=== PATIENT | female | born 1945 | race Caucasian/White ===

== ENCOUNTER 2018-05-22 21:13 | Observation (INO) ==
[2018-05-22] MEDS ORDERED: HYDROmorphone 2 MG/1 ML VIAL IV PRN (23:26)
[2018-05-22] MEDS ORDERED: SODIUM CHLORIDE 0.9% 1,000 ML IV STA (23:26)
[2018-05-22] MEDS ORDERED: KETOROLAC 30 MG/1 ML VIAL IV STA (23:26)
[2018-05-22] MEDS ORDERED: ONDANSETRON 4 MG/2 ML VIAL IV STA (23:26)
[2018-05-22] MEDS ORDERED: ONDANSETRON 4 MG/2 ML VIAL IV PRN (23:27)
[2018-05-23] MEDS: HYDROmorphone 2 MG/1 ML VIAL IV PRN ×2 (00:36→09:45)
[2018-05-23 00:41] LABS: Basophils # 0.1 10*3/uL (0.0-0.2); Basophils % 0.3 % (0.0-0.8); Eosinophils # 0.2 10*3/uL (0.0-0.87); Eosinophils % 0.7 % (0.00-10.9); Hematocrit 39.4 VOL% (35.7-47.0); Hemoglobin 13.7 GM/DL (12.0-16.0); Immature Granulocytes % 0.7 %; Immature Granulocytes Absolute 0.14 #; Lymphocytes # 0.8 10*3/uL (1.4-4.0); Lymphocytes % 3.8 % (21.3-54.2); Mean Corpuscular HGB Conc 34.8 GM/DL (32-36); Mean Corpuscular Hemoglobin 31 PG (27-34); Mean Platelet Volume 10.2 FL (9.6-12.0); Monocytes # 1.6 10*3/uL (0.11-0.8); Monocytes % 7.7 % (1.7-12.7); Neutrophils # 17.8 10*3/uL (1.4-7.4); Neutrophils % 86.8 % (38.7-73.9); Platelet Count 296 T/CUMM (130-400); Red Blood Count 4.38 MC/CUMM (3.8-5.5); Red Cell Distribution Width 12.3 % (9.3-17.3); White Blood Count 20.5 T/CUMM (4-12)
[2018-05-23 00:53] LABS: Albumin 3.6 G/DL (3.4-5.0); Bilirubin,Total 0.9 MG/DL (0.2-1.0); Calcium 9.1 MG/DL (8.5-10.1); Osmolality,Calculated 272.2 MOS/KG (273-304); Potassium 4.2 MMOL/L (3.5-5.1); Total Protein 7.6 G/DL (6.4-8.3)
[2018-05-23 00:56] LABS: Apearance,Urine CLOUDY (Clear); Bilirubin,Urine Negative (Negative); Blood, Urine Large mg/dL (Negative); Calcium Oxalate Crystals,Urine Moderate /HPF (Few); Glucose,Urine (UA) Negative (Negative); Ketones,Urine Negative (Negative); Nitrite,Urine Negative (Negative); Protein,Urine 100 MG/DL; RBC,Urine 657 /HPF (0-4); Squamous Epithelial Cell,Urine Occasional /HPF (0-10); Urine Color Yellow (Yellow); Urine Specific Gravity 1.014 (1.001-1.035); Urine Urobilinogen < 2.0 EU/DL (0.2-1.0); WBC,Urine 71 /HPF (0-6)
[2018-05-23 01:16] LABS: Band Neutrophils 4 % (0-10); Lymphocytes 8 % (20-55); Platelet Estimate Normal; Segmented Neutrophils 83 % (50-85); Total Cells Counted 100
[2018-05-23] MEDS: DEXTROSE 5% LACTATED RINGERS 1,000 ML IV SCH ×2 (02:03→10:29)
[2018-05-23] MEDS ORDERED: CARVEDILOL 6.25 MG TABLET PO SCH (09:00)
[2018-05-23] MEDS ORDERED: IRBESARTAN 150 MG TABLET PO SCH (09:00)
[2018-05-23] MEDS ORDERED: PANTOPRAZOLE 40 MG TABLET PO SCH (09:00)
[2018-05-23] MEDS ORDERED: MAGNESIUM CHLORIDE 64 MG TABLET PO SCH (09:00)
[2018-05-23] MEDS ORDERED: HYDROmorphone 2 MG/1 ML VIAL IV PRN (12:08)
[2018-05-23] MEDS ORDERED: SEVOFLURANE 1 UNIT/15 MINUTE INH ONE (15:53)
[2018-05-23] MEDS ORDERED: PROPOFOL 200 MG/20 ML VIAL IV ONE (15:53)
[2018-05-23] MEDS ORDERED: ONDANSETRON 4 MG/2 ML VIAL ONE (15:53)
[2018-05-23] MEDS ORDERED: fentaNYL 100 MCG/2 ML VIAL ONE (15:53)
[2018-05-23] MEDS ORDERED: ONDANSETRON ODT 4 MG TABLET PO PRN (16:06)
[2018-05-23] MEDS ORDERED: oxyCODONE/ACETAMINOPHEN 5-325 MG TABLET PO PRN (16:06)
[2018-05-23 19:06] VITALS: BP 139/69
[2018-05-23] MEDS ORDERED: AMOXICILLIN/CLAV 875 MG TABLET PO SCH (21:00)
[2018-05-23] MEDS ORDERED: ATORVASTATIN 80 MG TABLET PO SCH (21:00)
[2018-05-23] MEDS ORDERED: ESCITALOPRAM 10 MG TABLET PO SCH (21:00)
== END 2018-05-23 19:30 | disposition home or self-care (01) ==
LOC: N.ED 21:13 → N.EDINP 21:13 → N.5E 05-23 00:13
PROVIDERS: ADMIT Urology; ATTEND Urology

== ENCOUNTER 2020-05-14 19:00 | Inpatient (IN) ==
[2020-05-14] MEDS ORDERED: ASPIRIN 325 MG TABLET PO STA (19:30)
[2020-05-14] MEDS ORDERED: MORPHINE 4 MG/1 ML VIAL IV STA (19:30)
[2020-05-14] MEDS ORDERED: ONDANSETRON 4 MG/2 ML VIAL IV STA (19:30)
[2020-05-14] MEDS ORDERED: ALUM/MAG/SIMETH/LIDO VISC 1:1 30 ML BOTTLE PO STA (19:30)
[2020-05-14] MEDS ORDERED: METOPROLOL TARTRATE 5 MG/5 ML VIAL IV STA ×2 (19:30→20:12)
[2020-05-14] MEDS ORDERED: NITROGLYCERIN 2% OINT 1 INCH/GM PACK TOP STA (19:30)
[2020-05-14] MEDS ORDERED: ENOXAPARIN 100 MG/ML SYRINGE SUBCUT STA (19:30)
[2020-05-14 19:42] LABS: Basophils % 0.4 % (0.0-0.8); Eosinophils % 0.1 % (0.00-10.9); Hematocrit 40.7 VOL% (35.7-47.0); Hemoglobin 13.3 GM/DL (12.0-16.0); Immature Granulocytes % 1.2 %; Immature Granulocytes Absolute 0.11 #; Lymphocytes # 0.8 10*3/uL (1.4-4.0); Lymphocytes % 8.3 % (21.3-54.2); Mean Corpuscular HGB Conc 32.7 GM/DL (32-36); Mean Corpuscular Volume 95.3 FL (87-102); Mean Platelet Volume 9.9 FL (9.6-12.0); Monocytes % 2.1 % (1.7-12.7); Neutrophils % 87.9 % (38.7-73.9); Platelet Count 338 T/CUMM (130-400); Red Blood Count 4.27 MC/CUMM (3.8-5.5); Red Cell Distribution Width 13.8 % (9.3-17.3); White Blood Count 9.4 T/CUMM (4-12)
[2020-05-14 19:58] LABS: PT Patient Result 10.8 SECS (9.8-11.9)
[2020-05-14 20:03] LABS: Albumin 3.8 G/DL (3.4-5.0); Bilirubin,Total 0.7 MG/DL (0.2-1.0); Calcium 9.6 MG/DL (8.5-10.1); Osmolality,Calculated 286.8 MOS/KG (273-304); Total Protein 7.8 G/DL (6.4-8.3)
[2020-05-14] MEDS ORDERED: MAGNESIUM SULF RIDER 2 GM in PREMIX 1 EACH IV STA (20:11)
[2020-05-14] MEDS ORDERED: ACETAMINOPHEN 325 MG TABLET PO PRN (20:30)
[2020-05-14] MEDS ORDERED: MORPHINE 4 MG/1 ML VIAL IV PRN (20:30)
[2020-05-14] MEDS ORDERED: ONDANSETRON 4 MG/2 ML VIAL IV PRN (20:30)
[2020-05-14] MEDS ORDERED: DEXTROSE 50% 25 GM/50 ML VIAL IV PRN (20:33)
[2020-05-14] MEDS ORDERED: GLUCAGON 1 MG VIAL IM PRN (20:33)
[2020-05-14] MEDS: INSULIN REGULAR 100 UNIT/ML SUBCUT SCH (22:27)
[2020-05-14] MEDS ORDERED: carvediloL 6.25 MG TABLET PO SCH (23:00)
[2020-05-14] MEDS: LOSARTAN 50 MG TABLET PO SCH (23:14)
[2020-05-14] MEDS ORDERED: hydrALAZINE 20 MG/1 ML VIAL IV PRN (23:25)
[2020-05-15] MEDS: NITROGLYCERIN 2% OINT 1 INCH/GM PACK TOP SCH ×4 (01:21→18:09)
[2020-05-15 06:07] LABS: Basophils # 0.1 10*3/uL (0.0-0.2); Basophils % 0.5 % (0.0-0.8); Eosinophils # 0.1 10*3/uL (0.0-0.87); Eosinophils % 0.9 % (0.00-10.9); Hematocrit 35.7 VOL% (35.7-47.0); Hemoglobin 11.7 GM/DL (12.0-16.0); Immature Granulocytes % 0.7 %; Immature Granulocytes Absolute 0.09 #; Lymphocytes # 1.7 10*3/uL (1.4-4.0); Lymphocytes % 14.2 % (21.3-54.2); Mean Corpuscular HGB Conc 32.8 GM/DL (32-36); Mean Corpuscular Volume 96.2 FL (87-102); Mean Platelet Volume 9.6 FL (9.6-12.0); Monocytes % 9.1 % (1.7-12.7); Neutrophils % 74.6 % (38.7-73.9); Platelet Count 274 T/CUMM (130-400); Red Blood Count 3.71 MC/CUMM (3.8-5.5); Red Cell Distribution Width 13.8 % (9.3-17.3); White Blood Count 12.3 T/CUMM (4-12)
[2020-05-15 06:32] LABS: Albumin 3.4 G/DL (3.4-5.0); Bilirubin,Total 1.1 MG/DL (0.2-1.0); Calcium 9.2 MG/DL (8.5-10.1); Osmolality,Calculated 281.5 MOS/KG (273-304); Total Protein 6.9 G/DL (6.4-8.3)
[2020-05-15 07:03] LABS: Risk Ratio 1.93; VLDL CHOLESTEROL 18.8 MG/DL
[2020-05-15] MEDS ORDERED: ENOXAPARIN 100 MG/ML SYRINGE SUBCUT SCH (08:00)
[2020-05-15] MEDS ORDERED: diphenhydrAMINE CAP 25 MG CAPSULE PO ONE (08:27)
[2020-05-15] MEDS ORDERED: POTASSIUM CHLORIDE RIDER 10 MEQ in PREMIX 1 EACH IV PRN (08:27)
[2020-05-15] MEDS ORDERED: MAGNESIUM SULF RIDER 2 GM in PREMIX 1 EACH IV PRN (08:27)
[2020-05-15] MEDS ORDERED: DIAZEPAM 5 MG TABLET PO ONE (08:27)
[2020-05-15] MEDS ORDERED: SODIUM CHLORIDE 0.45% 1,000 ML IV SCH (08:30)
[2020-05-15] MEDS: INSULIN REGULAR 100 UNIT/ML SUBCUT SCH ×4 (08:30→21:54)
[2020-05-15] MEDS ORDERED: MAGNESIUM SULF RIDER 2 GM in PREMIX 1 EACH IV ONE (08:32)
[2020-05-15] MEDS ORDERED: LIDOCAINE 1% 20 ML VIAL ONE (09:22)
[2020-05-15] MEDS ORDERED: HEPARIN/NACL 0.9% 2 UNITS/ML 1,000 ML IV ONE (09:22)
[2020-05-15] MEDS: carvediloL 6.25 MG TABLET PO SCH ×2 (09:30→16:51)
[2020-05-15] MEDS: LOSARTAN 50 MG TABLET PO SCH (09:31)
[2020-05-15] MEDS: ASPIRIN EC 81 MG TABLET PO SCH (09:31)
[2020-05-15] MEDS: PANTOPRAZOLE 40 MG TABLET PO SCH (09:31)
[2020-05-15] MEDS ORDERED: NITROGLYCERIN DRIP 50 MG/250 ML BOTTLE IV ONE (10:08)
[2020-05-15] MEDS ORDERED: VERAPAMIL 5 MG/2 ML VIAL ONE (10:08)
[2020-05-15] MEDS ORDERED: HYDROmorphone 2 MG/1 ML VIAL ONE (10:16)
[2020-05-15] MEDS ORDERED: MIDAZOLAM 2 MG/2 ML VIAL ONE (10:16)
[2020-05-15] MEDS ORDERED: ENOXAPARIN 30 MG/0.3 ML SYRINGE ONE (10:37)
[2020-05-15] MEDS ORDERED: EPTIFIBATIDE 20,000 MCG/10 ML VIAL ONE (11:02)
[2020-05-15] MEDS ORDERED: TICAGRELOR 90 MG TABLET ONE (11:36)
[2020-05-15] MEDS ORDERED: SODIUM CHLORIDE 0.9% 1,000 ML IV SCH (12:00)
[2020-05-15] MEDS ORDERED: ENOXAPARIN 40 MG/0.4 ML SYRINGE SUBCUT SCH ×2 (15:00→21:00)
[2020-05-15 19:09] LABS: Hematocrit 36.1 VOL% (35.7-47.0); Hemoglobin 11.9 GM/DL (12.0-16.0)
[2020-05-15] MEDS ORDERED: ROSUVASTATIN 20 MG TABLET PO SCH (21:00)
[2020-05-15] MEDS ORDERED: ESCITALOPRAM 10 MG TABLET PO SCH (21:00)
[2020-05-15] MEDS: TICAGRELOR 90 MG TABLET PO SCH (21:43)
[2020-05-16] MEDS: NITROGLYCERIN 2% OINT 1 INCH/GM PACK TOP SCH ×2 (00:02→05:37)
[2020-05-16 05:54] LABS: Basophils # 0.1 10*3/uL (0.0-0.2); Basophils % 0.5 % (0.0-0.8); Eosinophils # 0.4 10*3/uL (0.0-0.87); Eosinophils % 3.6 % (0.00-10.9); Hematocrit 34.6 VOL% (35.7-47.0); Hemoglobin 11.5 GM/DL (12.0-16.0); Immature Granulocytes % 0.8 %; Immature Granulocytes Absolute 0.09 #; Lymphocytes # 1.4 10*3/uL (1.4-4.0); Lymphocytes % 12.7 % (21.3-54.2); Mean Corpuscular HGB Conc 33.2 GM/DL (32-36); Mean Corpuscular Volume 96.4 FL (87-102); Monocytes % 9.3 % (1.7-12.7); Neutrophils % 73.1 % (38.7-73.9); Platelet Count 241 T/CUMM (130-400); Red Blood Count 3.59 MC/CUMM (3.8-5.5); Red Cell Distribution Width 14.1 % (9.3-17.3); White Blood Count 11.1 T/CUMM (4-12)
[2020-05-16 06:25] LABS: Calcium 8.8 MG/DL (8.5-10.1); Osmolality,Calculated 279.5 MOS/KG (273-304)
[2020-05-16 06:29] LABS: CKMB % 4.3 %
[2020-05-16 07:05] LABS: Troponin I 7.05 NG/ML (0.00-0.045)
[2020-05-16] MEDS: INSULIN REGULAR 100 UNIT/ML SUBCUT SCH ×2 (08:16→13:16)
[2020-05-16] MEDS: LOSARTAN 50 MG TABLET PO SCH (08:38)
[2020-05-16] MEDS: PANTOPRAZOLE 40 MG TABLET PO SCH (08:38)
[2020-05-16] MEDS: ASPIRIN EC 81 MG TABLET PO SCH (08:38)
[2020-05-16] MEDS: carvediloL 6.25 MG TABLET PO SCH (08:38)
[2020-05-16] MEDS: TICAGRELOR 90 MG TABLET PO SCH (08:39)
[2020-05-16] MEDS ORDERED: MAGNESIUM CHLORIDE 64 MG TABLET PO SCH (09:00)
[2020-05-16] MEDS ORDERED: CLOPIDOGREL 75 MG TABLET PO SCH (10:30)
[2020-05-16 12:35] VITALS: BP 160/71
[2020-05-16] MEDS ORDERED: ATORVASTATIN 40 MG TABLET PO SCH (21:00)
[2020-05-16] MEDS ORDERED: ATORVASTATIN 80 MG TABLET PO SCH (21:00)
[2020-05-16] MEDS ORDERED: PANTOPRAZOLE 40 MG TABLET PO SCH (21:00)
== END 2020-05-16 14:04 | disposition home or self-care (01) | DRG 247 ==
LOC: N.EDINP 19:00 → N.ED 19:00 → N.TELEN 21:42
PROVIDERS: ADMIT Internal Medicine; ATTEND Internal Medicine

== ENCOUNTER 2021-01-05 13:28 | Inpatient (IN) ==
[2021-01-05 14:03] LABS: Basophils # 0.1 10*3/uL (0.0-0.2); Basophils % 0.8 % (0.0-0.8); Eosinophils # 0.4 10*3/uL (0.0-0.87); Eosinophils % 3.2 % (0.00-10.9); Hematocrit 43.3 VOL% (35.7-47.0); Hemoglobin 14.6 GM/DL (12.0-16.0); Immature Granulocytes % 0.5 %; Immature Granulocytes Absolute 0.06 #; Lymphocytes # 1.7 10*3/uL (1.4-4.0); Lymphocytes % 12.4 % (21.3-54.2); Mean Corpuscular HGB Conc 33.7 GM/DL (32-36); Mean Corpuscular Volume 94.3 FL (87-102); Monocytes % 9.3 % (1.7-12.7); Neutrophils % 73.8 % (38.7-73.9); Platelet Count 403 T/CUMM (130-400); Red Blood Count 4.59 MC/CUMM (3.8-5.5); Red Cell Distribution Width 13.8 % (9.3-17.3); White Blood Count 13.3 T/CUMM (4-12)
[2021-01-05] MEDS ORDERED: NITROGLYCERIN SL 0.4 MG TABLET SL STA (14:03)
[2021-01-05 14:18] LABS: Albumin 4.4 G/DL (3.4-5.0); Bilirubin,Total 0.6 MG/DL (0.2-1.0); Calcium 9.9 MG/DL (8.5-10.1); Osmolality,Calculated 280.2 MOS/KG (273-304); PT Patient Result 10.8 SECS (9.8-11.9); Total Protein 8.5 G/DL (6.4-8.2)
[2021-01-05 14:21] LABS: Potassium 6.8 MMOL/L (3.5-5.1)
[2021-01-05 14:22] LABS: Troponin I < 0.015 NG/ML (0.00-0.045)
[2021-01-05] MEDS ORDERED: DEXTROSE 50% 25 GM/50 ML VIAL IV STA (14:35)
[2021-01-05] MEDS ORDERED: INSULIN REGULAR 100 UNIT/ML IV STA (14:35)
[2021-01-05] MEDS ORDERED: SODIUM POLYSTYRENE SULFATE 15 GM/60 ML BOTTLE PO STA (14:53)
[2021-01-05] MEDS ORDERED: CALCIUM GLUCONATE 1,000 MG in SODIUM CHLORIDE 0.9% 100 ML IV ONE ×2 (15:00→17:00)
[2021-01-05] MEDS ORDERED: GLUCAGON 1 MG VIAL IM PRN (15:15)
[2021-01-05] MEDS ORDERED: ACETAMINOPHEN 325 MG TABLET PO PRN (15:15)
[2021-01-05] MEDS ORDERED: DEXTROSE 50% 25 GM/50 ML VIAL IV PRN (15:15)
[2021-01-05] MEDS ORDERED: ONDANSETRON 4 MG/2 ML VIAL IV PRN (15:15)
[2021-01-05] MEDS ORDERED: NITROGLYCERIN SL 0.4 MG TABLET SL PRN (15:17)
[2021-01-05] MEDS ORDERED: carvediloL 12.5 MG TABLET PO SCH (15:30)
[2021-01-05 15:43] LABS: Risk Ratio 2.41; Thyroid Stimulating Hormone 2.19 uIU/ml (0.358-3.74); VLDL CHOLESTEROL 43.2 MG/DL
[2021-01-05] MEDS: INSULIN REGULAR 100 UNIT/ML SUBCUT SCH ×2 (16:23→21:44)
[2021-01-05] MEDS: SODIUM BICARB INJ 50 MEQ in SODIUM CHLORIDE 0.45% 1,000 ML IV SCH (16:52)
[2021-01-05 19:05] LABS: Troponin I < 0.015 NG/ML (0.00-0.045)
[2021-01-05 21:01] LABS: Troponin I < 0.015 NG/ML (0.00-0.045)
[2021-01-05] MEDS: ESCITALOPRAM 10 MG TABLET PO SCH (21:34)
[2021-01-05] MEDS: ATORVASTATIN 80 MG TABLET PO SCH (21:34)
[2021-01-06 01:05] LABS: Basophils # 0.1 10*3/uL (0.0-0.2); Basophils % 0.8 % (0.0-0.8); Eosinophils # 0.5 10*3/uL (0.0-0.87); Eosinophils % 4.4 % (0.00-10.9); Hematocrit 41.2 VOL% (35.7-47.0); Hemoglobin 13.5 GM/DL (12.0-16.0); Immature Granulocytes % 0.6 %; Immature Granulocytes Absolute 0.07 #; Lymphocytes # 1.9 10*3/uL (1.4-4.0); Lymphocytes % 16.6 % (21.3-54.2); Mean Corpuscular HGB Conc 32.8 GM/DL (32-36); Mean Corpuscular Volume 95.4 FL (87-102); Mean Platelet Volume 9.9 FL (9.6-12.0); Monocytes % 10.4 % (1.7-12.7); Neutrophils % 67.2 % (38.7-73.9); Platelet Count 336 T/CUMM (130-400); Red Blood Count 4.32 MC/CUMM (3.8-5.5); Red Cell Distribution Width 13.8 % (9.3-17.3); White Blood Count 11.5 T/CUMM (4-12)
[2021-01-06 01:19] LABS: Calcium 9.2 MG/DL (8.5-10.1); Osmolality,Calculated 284.9 MOS/KG (273-304); Potassium 5.5 MMOL/L (3.5-5.1)
[2021-01-06] MEDS: SODIUM BICARB INJ 50 MEQ in SODIUM CHLORIDE 0.45% 1,000 ML IV SCH ×3 (03:34→22:32)
[2021-01-06 07:31] LABS: Bacteria,Urine Occasional /HPF (Few); Bilirubin,Urine Negative (Negative); Blood, Urine Negative (Negative); Glucose,Urine (UA) Negative (Negative); Hyaline Casts,Urine 1 /LPF (0-3); Ketones,Urine Negative (Negative); Mucus,Urine Occasional /LPF (Occasional); Nitrite,Urine Negative (Negative); Protein,Urine Negative; RBC,Urine 2 /HPF (0-4); Squamous Epithelial Cell,Urine Occasional /HPF (0-10); Urine Appearance CLEAR (Clear); Urine Color Straw (Yellow); Urine Specific Gravity 1.009 (1.001-1.035); Urine Urobilinogen < 2.0 EU/DL (0.2-1.0); WBC,Urine 2 /HPF (0-6)
[2021-01-06] MEDS: INSULIN REGULAR 100 UNIT/ML SUBCUT SCH ×4 (08:07→20:32)
[2021-01-06] MEDS: ASPIRIN EC 81 MG TABLET PO SCH (08:28)
[2021-01-06] MEDS: MAGNESIUM CHLORIDE 64 MG TABLET PO SCH (08:29)
[2021-01-06] MEDS: PANTOPRAZOLE 40 MG TABLET PO SCH (08:29)
[2021-01-06] MEDS: CLOPIDOGREL 75 MG TABLET PO SCH (08:29)
[2021-01-06] MEDS: carvediloL 12.5 MG TABLET PO SCH ×2 (08:29→20:33)
[2021-01-06] MEDS ORDERED: SODIUM POLYSTYRENE SULFATE 15 GM/60 ML BOTTLE PO ONE (11:23)
[2021-01-06] MEDS: SODIUM CHLORIDE 0.9% 1,000 ML IV SCH (11:39)
[2021-01-06 12:17] LABS: Protein/Creatinine Ratio,Urine 0.1 RATIO
[2021-01-06] MEDS: ATORVASTATIN 80 MG TABLET PO SCH (20:33)
[2021-01-06] MEDS: ESCITALOPRAM 10 MG TABLET PO SCH (20:33)
[2021-01-07] MEDS: SODIUM CHLORIDE 0.9% 1,000 ML IV SCH ×2 (00:21→13:10)
[2021-01-07 05:56] LABS: Basophils # 0.1 10*3/uL (0.0-0.2); Basophils % 0.7 % (0.0-0.8); Eosinophils # 0.6 10*3/uL (0.0-0.87); Eosinophils % 6.6 % (0.00-10.9); Hematocrit 35.2 VOL% (35.7-47.0); Hemoglobin 12.1 GM/DL (12.0-16.0); Immature Granulocytes % 0.2 %; Immature Granulocytes Absolute 0.02 #; Lymphocytes # 1.7 10*3/uL (1.4-4.0); Lymphocytes % 17.7 % (21.3-54.2); Mean Corpuscular HGB Conc 34.4 GM/DL (32-36); Mean Corpuscular Volume 93.4 FL (87-102); Mean Platelet Volume 10.1 FL (9.6-12.0); Monocytes % 9.9 % (1.7-12.7); Neutrophils % 64.9 % (38.7-73.9); Platelet Count 264 T/CUMM (130-400); Red Blood Count 3.77 MC/CUMM (3.8-5.5); Red Cell Distribution Width 13.6 % (9.3-17.3); White Blood Count 9.4 T/CUMM (4-12)
[2021-01-07 06:12] LABS: Calcium 8.9 MG/DL (8.5-10.1); Osmolality,Calculated 293.7 MOS/KG (273-304); Potassium 5.7 MMOL/L (3.5-5.1)
[2021-01-07] MEDS ORDERED: SODIUM POLYSTYRENE SULFATE 15 GM/60 ML BOTTLE PO ONE (07:17)
[2021-01-07] MEDS: INSULIN REGULAR 100 UNIT/ML SUBCUT SCH ×4 (07:49→20:38)
[2021-01-07] MEDS: carvediloL 12.5 MG TABLET PO SCH ×2 (08:14→20:38)
[2021-01-07] MEDS: ASPIRIN EC 81 MG TABLET PO SCH (08:14)
[2021-01-07] MEDS: MAGNESIUM CHLORIDE 64 MG TABLET PO SCH (08:14)
[2021-01-07] MEDS: CLOPIDOGREL 75 MG TABLET PO SCH (08:14)
[2021-01-07] MEDS: PANTOPRAZOLE 40 MG TABLET PO SCH (08:14)
[2021-01-07] MEDS: SODIUM BICARB INJ 50 MEQ in SODIUM CHLORIDE 0.45% 1,000 ML IV SCH (09:13)
[2021-01-07] MEDS: ATORVASTATIN 80 MG TABLET PO SCH (20:38)
[2021-01-07] MEDS: ESCITALOPRAM 10 MG TABLET PO SCH (20:38)
[2021-01-08] MEDS: SODIUM CHLORIDE 0.9% 1,000 ML IV SCH (03:29)
[2021-01-08 05:55] LABS: Basophils # 0.1 10*3/uL (0.0-0.2); Basophils % 0.7 % (0.0-0.8); Eosinophils # 0.6 10*3/uL (0.0-0.87); Eosinophils % 6.7 % (0.00-10.9); Hematocrit 32.8 VOL% (35.7-47.0); Hemoglobin 11.1 GM/DL (12.0-16.0); Immature Granulocytes % 0.3 %; Immature Granulocytes Absolute 0.03 #; Lymphocytes # 1.4 10*3/uL (1.4-4.0); Lymphocytes % 15.3 % (21.3-54.2); Mean Corpuscular HGB Conc 33.8 GM/DL (32-36); Mean Corpuscular Volume 93.7 FL (87-102); Mean Platelet Volume 10.2 FL (9.6-12.0); Platelet Count 226 T/CUMM (130-400); Red Cell Distribution Width 13.7 % (9.3-17.3); White Blood Count 9.4 T/CUMM (4-12)
[2021-01-08 06:16] LABS: Calcium 8.5 MG/DL (8.5-10.1); Osmolality,Calculated 288.3 MOS/KG (273-304); Potassium 4.8 MMOL/L (3.5-5.1)
[2021-01-08] MEDS: INSULIN REGULAR 100 UNIT/ML SUBCUT SCH ×2 (07:59→11:47)
[2021-01-08] MEDS: ASPIRIN EC 81 MG TABLET PO SCH (08:19)
[2021-01-08] MEDS: CLOPIDOGREL 75 MG TABLET PO SCH (08:19)
[2021-01-08] MEDS: PANTOPRAZOLE 40 MG TABLET PO SCH (08:19)
[2021-01-08] MEDS: MAGNESIUM CHLORIDE 64 MG TABLET PO SCH (08:19)
[2021-01-08] MEDS: carvediloL 12.5 MG TABLET PO SCH (08:19)
[2021-01-08 12:20] VITALS: BP 122/51
[2021-01-08] MEDS ORDERED: SODIUM ZIRCONIUM CYCLOSILICATE 10 GM PACK PO SCH (14:00)
== END 2021-01-08 13:44 | disposition home or self-care (01) | DRG 683 ==
LOC: N.ED 13:28 → N.EDINP 13:28 → N.TELEN 15:15 → SUATTDRO 16:03
PROVIDERS: ADMIT Internal Medicine; ATTEND Internal Medicine

== ENCOUNTER 2022-04-24 23:31 | Inpatient (IN) ==
[2022-04-25] MEDS ORDERED: KETOROLAC 30 MG/1 ML VIAL IV STA (00:25)
[2022-04-25] MEDS ORDERED: HYDROmorphone 1 MG/1 ML SYRINGE IV STA (00:32)
[2022-04-25 00:43] LABS: Calcium 8.9 MG/DL (8.5-10.1); Osmolality,Calculated 285.4 MOS/KG (273-304); Potassium 4.4 MMOL/L (3.5-5.1)
[2022-04-25 00:45] LABS: Basophils # 0.1 10*3/uL (0.0-0.2); Basophils % 0.5 % (0.0-0.8); Eosinophils # 0.4 10*3/uL (0.0-0.87); Eosinophils % 3.2 % (0.00-10.9); Hematocrit 38.7 VOL% (35.7-47.0); Hemoglobin 12.6 GM/DL (12.0-16.0); Immature Granulocytes % 0.7 %; Immature Granulocytes Absolute 0.09 #; Lymphocytes # 1.2 10*3/uL (1.4-4.0); Lymphocytes % 8.7 % (21.3-54.2); Mean Corpuscular HGB Conc 32.6 GM/DL (32-36); Mean Corpuscular Volume 92.6 FL (87-102); Mean Platelet Volume 10.1 FL (9.6-12.0); Monocytes # 1.2 10*3/uL (0.11-0.8); Monocytes % 8.7 % (1.7-12.7); Neutrophils % 78.2 % (38.7-73.9); Platelet Count 298 T/CUMM (130-400); Red Blood Count 4.18 MC/CUMM (3.8-5.5); Red Cell Distribution Width 14.2 % (9.3-17.3); White Blood Count 13.5 T/CUMM (4-12)
[2022-04-25] MEDS ORDERED: DEXTROSE 10% 250 ML BAG IV PRN (01:22)
[2022-04-25] MEDS ORDERED: GLUCAGON 1 MG VIAL IM PRN (01:22)
[2022-04-25 01:24] LABS: Platelet Estimate Normal
[2022-04-25] MEDS ORDERED: hydrALAZINE 20 MG/1 ML VIAL IV PRN (01:32)
[2022-04-25] MEDS ORDERED: HYDROmorphone 1 MG/1 ML SYRINGE IV PRN (01:32)
[2022-04-25] MEDS ORDERED: carvediloL 3.125 MG TABLET PO STA (01:32)
[2022-04-25] MEDS ORDERED: ACETAMINOPHEN 325 MG TABLET PO PRN (01:32)
[2022-04-25 01:38] LABS: PT Patient Result 10.9 SECS (10.1-12.1)
[2022-04-25 02:03] LABS: PT Patient Result 10.9 SECS (10.1-12.1); Partial Thromboplastin Time 21.9 SECS (23.7-32.9)
[2022-04-25] MEDS ORDERED: fentaNYL 100 MCG/2 ML VIAL ONE (06:56)
[2022-04-25] MEDS ORDERED: LIDOCAINE 2% 5 ML VIAL ONE (06:56)
[2022-04-25] MEDS ORDERED: ROCURONIUM 50 MG/5 ML VIAL IV ONE (06:56)
[2022-04-25] MEDS ORDERED: ONDANSETRON 4 MG/2 ML VIAL ONE (06:56)
[2022-04-25] MEDS ORDERED: ETOMIDATE 40 MG/20 ML VIAL IV ONE (06:56)
[2022-04-25] MEDS ORDERED: ceFAZolin 2,000 MG/50 ML DUPLEX IV ONE (07:16)
[2022-04-25] MEDS ORDERED: LACTULOSE 20 GM/30 ML UDCUP PO PRN (07:39)
[2022-04-25] MEDS ORDERED: BISACODYL 10 MG SUPP RECTAL PRN (07:39)
[2022-04-25] MEDS ORDERED: diphenhydrAMINE CAP 25 MG CAPSULE PO PRN (07:39)
[2022-04-25] MEDS ORDERED: FLUCONAZOLE 150 MG TABLET PO PRN (07:41)
[2022-04-25] MEDS ORDERED: NON-FORMULARY MEDICATION (Acetaminophen 650 mg Tablet) PO PRN (07:41)
[2022-04-25] MEDS ORDERED: ceFAZolin 1,000 MG VIAL ONE ×3 (08:00→08:22)
[2022-04-25] MEDS ORDERED: DESFLURANE 1 UNIT/15 MINUTE INH ONE (08:22)
[2022-04-25] MEDS ORDERED: SODIUM CHLORIDE 0.9% 100 ML IV ONE (08:22)
[2022-04-25] MEDS ORDERED: SUCCINYLCHOLINE 200 MG/10 ML VIAL ONE (08:22)
[2022-04-25] MEDS ORDERED: PHENYLEPHRINE 1 MG/10 ML SYRINGE IV ONE (08:23)
[2022-04-25] MEDS ORDERED: NEOSTIGMINE 10 MG/10 ML VIAL ONE (08:31)
[2022-04-25] MEDS ORDERED: GLYCOPYRROLATE 0.4 MG/2 ML VIAL ONE (08:31)
[2022-04-25] MEDS ORDERED: PANTOPRAZOLE 40 MG TABLET PO SCH (09:00)
[2022-04-25] MEDS: INSULIN LISPRO 100 UNIT/ML SUBCUT SCH ×4 (09:37→21:20)
[2022-04-25] MEDS: ESCITALOPRAM 10 MG TABLET PO SCH ×2 (10:04→17:39)
[2022-04-25] MEDS: PANTOPRAZOLE 40 MG TABLET PO SCH (10:09)
[2022-04-25] MEDS: CLOPIDOGREL 75 MG TABLET PO SCH (10:09)
[2022-04-25] MEDS: ATORVASTATIN 80 MG TABLET PO SCH (10:09)
[2022-04-25] MEDS: allopurinoL 100 MG TABLET PO SCH (10:09)
[2022-04-25] MEDS: carvediloL 12.5 MG TABLET PO SCH ×2 (10:09→21:12)
[2022-04-25] MEDS: LACTATED RINGERS 1,000 ML IV SCH (10:32)
[2022-04-25] MEDS ORDERED: CALCIUM (CARBONATE) 600 MG TABLET PO SCH (11:30)
[2022-04-25] MEDS: HYDROmorphone 1 MG/1 ML SYRINGE IV PRN (12:18)
[2022-04-25] MEDS: ERGOCALCIFEROL 50,000 UNIT CAPSULE PO SCH (13:00)
[2022-04-25] MEDS ORDERED: NON-FORMULARY MEDICATION (Acetaminophen [Tylenol Arthritis Pain] 650 mg Tablet Extended Re PO SCH (21:00)
[2022-04-25] MEDS: CALCIUM (CARBONATE) 500 MG TABLET PO SCH (21:12)
[2022-04-25] MEDS: FONDAPARINUX 2.5 MG/0.5 ML SYRINGE SUBCUT SCH (21:12)
[2022-04-26 05:28] LABS: Basophils # 0.1 10*3/uL (0.0-0.2); Basophils % 0.5 % (0.0-0.8); Eosinophils # 0.2 10*3/uL (0.0-0.87); Hematocrit 33.3 VOL% (35.7-47.0); Hemoglobin 10.8 GM/DL (12.0-16.0); Immature Granulocytes % 0.6 %; Lymphocytes # 0.8 10*3/uL (1.4-4.0); Lymphocytes % 4.6 % (21.3-54.2); Mean Corpuscular HGB Conc 32.4 GM/DL (32-36); Mean Corpuscular Volume 92.5 FL (87-102); Mean Platelet Volume 10.3 FL (9.6-12.0); Monocytes # 1.5 10*3/uL (0.11-0.8); Monocytes % 8.5 % (1.7-12.7); Neutrophils % 84.8 % (38.7-73.9); Platelet Count 289 T/CUMM (130-400); Red Cell Distribution Width 14.6 % (9.3-17.3); White Blood Count 17.4 T/CUMM (4-12)
[2022-04-26 06:15] LABS: Calcium 8.9 MG/DL (8.5-10.1); Osmolality,Calculated 278.2 MOS/KG (273-304); Potassium 5.1 MMOL/L (3.5-5.1)
[2022-04-26 06:28] LABS: Calcium 8.7 MG/DL (8.5-10.1); Osmolality,Calculated 278.2 MOS/KG (273-304); Potassium 5.1 MMOL/L (3.5-5.1)
[2022-04-26 06:29] LABS: Band Neutrophils 2 % (0-10); Eosinophils 2 % (0-10); Lymphocytes 4 % (20-55); Total Cells Counted 100
[2022-04-26 06:30] LABS: Microcytosis Slight; Ovalocytes Slight
[2022-04-26] MEDS: LACTATED RINGERS 1,000 ML IV SCH (07:29)
[2022-04-26] MEDS: INSULIN LISPRO 100 UNIT/ML SUBCUT SCH ×4 (07:48→20:49)
[2022-04-26] MEDS: allopurinoL 100 MG TABLET PO SCH (08:18)
[2022-04-26] MEDS: ESCITALOPRAM 10 MG TABLET PO SCH ×2 (08:18→16:22)
[2022-04-26] MEDS: carvediloL 12.5 MG TABLET PO SCH ×2 (08:18→20:47)
[2022-04-26] MEDS: CLOPIDOGREL 75 MG TABLET PO SCH (08:18)
[2022-04-26] MEDS: CALCIUM (CARBONATE) 500 MG TABLET PO SCH ×2 (08:18→20:47)
[2022-04-26] MEDS: ATORVASTATIN 80 MG TABLET PO SCH (08:18)
[2022-04-26] MEDS: PANTOPRAZOLE 40 MG TABLET PO SCH (08:18)
[2022-04-26 09:32] LABS: Basophils # 0.1 10*3/uL (0.0-0.2); Basophils % 0.3 % (0.0-0.8); Eosinophils # 0.1 10*3/uL (0.0-0.87); Eosinophils % 0.7 % (0.00-10.9); Hematocrit 34.3 VOL% (35.7-47.0); Hemoglobin 11.3 GM/DL (12.0-16.0); Immature Granulocytes % 0.6 %; Immature Granulocytes Absolute 0.11 #; Lymphocytes # 0.9 10*3/uL (1.4-4.0); Lymphocytes % 5.2 % (21.3-54.2); Mean Corpuscular HGB Conc 32.9 GM/DL (32-36); Mean Platelet Volume 10.1 FL (9.6-12.0); Monocytes # 1.5 10*3/uL (0.11-0.8); Monocytes % 8.3 % (1.7-12.7); Neutrophils % 84.9 % (38.7-73.9); Platelet Count 291 T/CUMM (130-400); Red Blood Count 3.73 MC/CUMM (3.8-5.5); Red Cell Distribution Width 14.7 % (9.3-17.3); White Blood Count 17.7 T/CUMM (4-12)
[2022-04-26 10:01] LABS: Calcium 8.8 MG/DL (8.5-10.1); Osmolality,Calculated 281.1 MOS/KG (273-304)
[2022-04-26] MEDS ORDERED: MAGNESIUM SULF RIDER 2 GM/50 ML PREMIX IV STA (10:59)
[2022-04-26] MEDS ORDERED: SODIUM CHLORIDE 0.9% 1,000 ML IV SCH (11:00)
[2022-04-26] MEDS: HYDROmorphone 1 MG/1 ML SYRINGE IV PRN (11:42)
[2022-04-26 12:27] LABS: Mucus,Urine Occasional /LPF (Occasional); RBC,Urine 7 /HPF (0-4)
[2022-04-26 12:36] LABS: Bilirubin,Urine Small mg/dL (Negative); Blood, Urine Trace mg/dL (Negative); Glucose,Urine (UA) Negative (Negative); Ketones,Urine 15 mg/dL (Negative); Nitrite,Urine Negative (Negative); Protein,Urine Negative (Negative); Urine Appearance Slightly Hazy (Clear); Urine Color Yellow (Yellow); Urine Specific Gravity 1.025 (1.001-1.035); Urine Urobilinogen 0.2 eU/dL (<2.0)
[2022-04-26] MEDS: MAGNESIUM HYDROXIDE SUSP 30 ML UDCUP PO PRN (20:47)
[2022-04-26] MEDS: FONDAPARINUX 2.5 MG/0.5 ML SYRINGE SUBCUT SCH (20:47)
[2022-04-27 07:07] LABS: Basophils % 0.2 % (0.0-0.8); Eosinophils % 0.2 % (0.00-10.9); Hematocrit 30.7 VOL% (35.7-47.0); Hemoglobin 10.2 GM/DL (12.0-16.0); Immature Granulocytes % 0.8 %; Immature Granulocytes Absolute 0.15 #; Lymphocytes # 0.7 10*3/uL (1.4-4.0); Lymphocytes % 3.7 % (21.3-54.2); Mean Corpuscular HGB Conc 33.2 GM/DL (32-36); Mean Corpuscular Volume 92.2 FL (87-102); Mean Platelet Volume 10.3 FL (9.6-12.0); Monocytes # 1.4 10*3/uL (0.11-0.8); Monocytes % 7.5 % (1.7-12.7); Neutrophils % 87.6 % (38.7-73.9); Platelet Count 252 T/CUMM (130-400); Red Blood Count 3.33 MC/CUMM (3.8-5.5); Red Cell Distribution Width 14.5 % (9.3-17.3); White Blood Count 18.8 T/CUMM (4-12)
[2022-04-27 07:14] LABS: Calcium 9.4 MG/DL (8.5-10.1); Osmolality,Calculated 280.4 MOS/KG (273-304); Potassium 4.6 MMOL/L (3.5-5.1)
[2022-04-27 07:35] LABS: Eosinophils 1 % (0-10); Lymphocytes 2 % (20-55); Platelet Estimate Adequate; Total Cells Counted 100
[2022-04-27] MEDS: POLYETHYLENE GLYCOL POWDER 17 GM PACK PO SCH (09:01)
[2022-04-27] MEDS: carvediloL 12.5 MG TABLET PO SCH ×2 (09:32→18:00)
[2022-04-27] MEDS: PANTOPRAZOLE 40 MG TABLET PO SCH (09:32)
[2022-04-27] MEDS: INSULIN LISPRO 100 UNIT/ML SUBCUT SCH ×4 (09:32→22:23)
[2022-04-27] MEDS: allopurinoL 100 MG TABLET PO SCH (09:32)
[2022-04-27] MEDS: CLOPIDOGREL 75 MG TABLET PO SCH (09:33)
[2022-04-27] MEDS: ESCITALOPRAM 10 MG TABLET PO SCH ×2 (09:33→18:00)
[2022-04-27] MEDS: ATORVASTATIN 80 MG TABLET PO SCH (09:37)
[2022-04-27] MEDS: CALCIUM (CARBONATE) 500 MG TABLET PO SCH ×2 (09:37→22:41)
[2022-04-27] MEDS: cefTRIAXone 1,000 MG in SODIUM CHLORIDE 0.9% 100 ML IV SCH ×2 (12:14→12:31)
[2022-04-27] MEDS: MAGNESIUM HYDROXIDE SUSP 30 ML UDCUP PO PRN ×2 (12:45→19:04)
[2022-04-27] MEDS: HYDROmorphone 1 MG/1 ML SYRINGE IV PRN (12:52)
[2022-04-27] MEDS ORDERED: SODIUM CHLORIDE 0.9% 250 ML IV ONE ×2 (14:00→23:38)
[2022-04-27 14:42] LABS: % Iron Saturation 11.1 % (18-50)
[2022-04-27] MEDS: DOXYCYCLINE HYCLATE INJ 100 MG in SODIUM CHLORIDE 0.9% 100 ML IV SCH (14:49)
[2022-04-27 14:55] LABS: Folate 7.97 NG/ML (5.38-24.0)
[2022-04-27] MEDS: ONDANSETRON 4 MG/2 ML VIAL IV PRN (17:10)
[2022-04-27] MEDS: LACTULOSE 20 GM/30 ML UDCUP PO SCH ×2 (21:25→22:40)
[2022-04-27] MEDS: FONDAPARINUX 2.5 MG/0.5 ML SYRINGE SUBCUT SCH (22:44)
[2022-04-28] MEDS: LACTULOSE 20 GM/30 ML UDCUP PO SCH (00:17)
[2022-04-28] MEDS: SODIUM CHLORIDE 0.9% 1,000 ML IV SCH ×3 (00:42→20:00)
[2022-04-28 02:05] LABS: Basophils % 0.2 % (0.0-0.8); Eosinophils % 0.1 % (0.00-10.9); Hematocrit 30.5 VOL% (35.7-47.0); Hemoglobin 10.1 GM/DL (12.0-16.0); Immature Granulocytes % 0.3 %; Immature Granulocytes Absolute 0.05 #; Lymphocytes # 0.5 10*3/uL (1.4-4.0); Lymphocytes % 2.7 % (21.3-54.2); Mean Corpuscular HGB Conc 33.1 GM/DL (32-36); Mean Corpuscular Volume 91.3 FL (87-102); Mean Platelet Volume 10.4 FL (9.6-12.0); Monocytes # 1.4 10*3/uL (0.11-0.8); Monocytes % 7.9 % (1.7-12.7); Neutrophils % 88.8 % (38.7-73.9); Platelet Count 295 T/CUMM (130-400); Red Blood Count 3.34 MC/CUMM (3.8-5.5); Red Cell Distribution Width 14.4 % (9.3-17.3); White Blood Count 17.2 T/CUMM (4-12)
[2022-04-28 02:20] LABS: Calcium 9.7 MG/DL (8.5-10.1); Osmolality,Calculated 285.4 MOS/KG (273-304); Potassium 4.5 MMOL/L (3.5-5.1)
[2022-04-28 02:34] LABS: Band Neutrophils 4 % (0-10); Lymphocytes 5 % (20-55); Platelet Estimate Adequate; Total Cells Counted 100
[2022-04-28] MEDS: DOXYCYCLINE HYCLATE INJ 100 MG in SODIUM CHLORIDE 0.9% 100 ML IV SCH ×2 (02:34→15:59)
[2022-04-28] MEDS: INSULIN LISPRO 100 UNIT/ML SUBCUT SCH ×4 (08:13→21:43)
[2022-04-28] MEDS ORDERED: PHENOL 1.4% THROAT SPRAY 177 ML BOTTLE PO PRN (10:19)
[2022-04-28] MEDS: CLOPIDOGREL 75 MG TABLET PO SCH (10:20)
[2022-04-28] MEDS: carvediloL 12.5 MG TABLET PO SCH ×2 (10:20→17:50)
[2022-04-28] MEDS: CYANOCOBALAMIN 1000 MCG/1 ML VIAL SUBCUT SCH (10:20)
[2022-04-28] MEDS: ATORVASTATIN 80 MG TABLET PO SCH (11:43)
[2022-04-28] MEDS: ESCITALOPRAM 10 MG TABLET PO SCH ×2 (11:43→17:50)
[2022-04-28] MEDS: CALCIUM (CARBONATE) 500 MG TABLET PO SCH ×2 (11:44→21:43)
[2022-04-28] MEDS: PANTOPRAZOLE 40 MG TABLET PO SCH (11:48)
[2022-04-28] MEDS: allopurinoL 100 MG TABLET PO SCH (11:50)
[2022-04-28] MEDS: POLYETHYLENE GLYCOL POWDER 17 GM PACK PO SCH (11:52)
[2022-04-28] MEDS: FERRIC GLUCONATE COMPLEX 125 MG in SODIUM CHLORIDE 0.9% 100 ML IV SCH (12:30)
[2022-04-28 12:46] LABS: Mycoplasma pneumoniae Ab Inter SEE COMMENTS; Mycoplasma pneumoniae Ab, IgG Positive (Negative); Mycoplasma pneumoniae Ab, IgM Negative (Negative)
[2022-04-28] MEDS: cefTRIAXone 1,000 MG in SODIUM CHLORIDE 0.9% 100 ML IV SCH (14:25)
[2022-04-28] MEDS: BUDESONIDE/FORMOTEROL 160-4.5 INHALER 6 GM INH SCH ×2 (14:26→21:49)
[2022-04-28] MEDS: FONDAPARINUX 2.5 MG/0.5 ML SYRINGE SUBCUT SCH (21:49)
[2022-04-29] MEDS: DOXYCYCLINE HYCLATE INJ 100 MG in SODIUM CHLORIDE 0.9% 100 ML IV SCH ×2 (02:18→14:50)
[2022-04-29] MEDS: HYDROmorphone 1 MG/1 ML SYRINGE IV PRN ×2 (04:01→13:45)
[2022-04-29 04:45] LABS: Basophils % 0.1 % (0.0-0.8); Eosinophils # 0.1 10*3/uL (0.0-0.87); Eosinophils % 0.7 % (0.00-10.9); Hematocrit 25.5 VOL% (35.7-47.0); Hemoglobin 8.1 GM/DL (12.0-16.0); Immature Granulocytes % 0.7 %; Immature Granulocytes Absolute 0.11 #; Lymphocytes # 0.9 10*3/uL (1.4-4.0); Lymphocytes % 5.6 % (21.3-54.2); Mean Corpuscular HGB Conc 31.8 GM/DL (32-36); Mean Corpuscular Volume 95.1 FL (87-102); Mean Platelet Volume 10.8 FL (9.6-12.0); Monocytes # 1.7 10*3/uL (0.11-0.8); Monocytes % 10.5 % (1.7-12.7); Neutrophils % 82.4 % (38.7-73.9); Platelet Count 300 T/CUMM (130-400); Red Blood Count 2.68 MC/CUMM (3.8-5.5); Red Cell Distribution Width 14.7 % (9.3-17.3); White Blood Count 16.2 T/CUMM (4-12)
[2022-04-29] MEDS: ONDANSETRON 4 MG/2 ML VIAL IV PRN (04:54)
[2022-04-29 05:07] LABS: Lymphocytes 6 % (20-55); Platelet Estimate Adequate; Total Cells Counted 100
[2022-04-29 05:08] LABS: Calcium 9.7 MG/DL (8.5-10.1); Hypochromia Slight; Microcytosis Slight; Osmolality,Calculated 296.1 MOS/KG (273-304); Potassium 4.6 MMOL/L (3.5-5.1)
[2022-04-29] MEDS: ALBUTEROL 2.5 MG/3 ML NEB RESP TX SCH ×3 (08:13→23:55)
[2022-04-29] MEDS: INSULIN LISPRO 100 UNIT/ML SUBCUT SCH ×4 (08:13→21:20)
[2022-04-29] MEDS: FERRIC GLUCONATE COMPLEX 125 MG in SODIUM CHLORIDE 0.9% 100 ML IV SCH (10:14)
[2022-04-29] MEDS: SODIUM CHLORIDE 0.9% 1,000 ML IV SCH ×2 (10:15→15:15)
[2022-04-29] MEDS: CYANOCOBALAMIN 1000 MCG/1 ML VIAL SUBCUT SCH (10:16)
[2022-04-29] MEDS: BUDESONIDE/FORMOTEROL 160-4.5 INHALER 6 GM INH SCH ×2 (10:16→21:09)
[2022-04-29] MEDS: cefTRIAXone 1,000 MG in SODIUM CHLORIDE 0.9% 100 ML IV SCH (13:15)
[2022-04-29] MEDS: ESCITALOPRAM 10 MG TABLET PO SCH ×2 (15:32→17:26)
[2022-04-29] MEDS: carvediloL 12.5 MG TABLET PO SCH ×2 (15:32→17:25)
[2022-04-29] MEDS: CALCIUM (CARBONATE) 500 MG TABLET PO SCH ×2 (15:33→21:19)
[2022-04-29] MEDS: ASPIRIN EC 325 MG TABLET PO SCH (17:25)
[2022-04-29] MEDS: ATORVASTATIN 80 MG TABLET PO SCH (17:25)
[2022-04-29] MEDS: allopurinoL 100 MG TABLET PO SCH (17:26)
[2022-04-29] MEDS: CLOPIDOGREL 75 MG TABLET PO SCH (17:26)
[2022-04-29] MEDS: PANTOPRAZOLE 40 MG TABLET PO SCH (17:27)
[2022-04-29] MEDS: POLYETHYLENE GLYCOL POWDER 17 GM PACK PO SCH (17:27)
[2022-04-30] MEDS ORDERED: ceFAZolin 2,000 MG/50 ML DUPLEX IV ONE (03:41)
[2022-04-30] MEDS: DOXYCYCLINE HYCLATE INJ 100 MG in SODIUM CHLORIDE 0.9% 100 ML IV SCH ×2 (03:54→13:15)
[2022-04-30 04:52] LABS: Basophils % 0.2 % (0.0-0.8); Eosinophils # 0.3 10*3/uL (0.0-0.87); Eosinophils % 1.9 % (0.00-10.9); Hematocrit 25.9 VOL% (35.7-47.0); Hemoglobin 8.1 GM/DL (12.0-16.0); Immature Granulocytes % 2.6 %; Immature Granulocytes Absolute 0.41 #; Lymphocytes # 1.1 10*3/uL (1.4-4.0); Lymphocytes % 6.9 % (21.3-54.2); Mean Corpuscular HGB Conc 31.3 GM/DL (32-36); Mean Corpuscular Volume 96.3 FL (87-102); Mean Platelet Volume 10.7 FL (9.6-12.0); Monocytes # 1.6 10*3/uL (0.11-0.8); Monocytes % 10.2 % (1.7-12.7); Neutrophils % 78.2 % (38.7-73.9); Platelet Count 309 T/CUMM (130-400); Red Blood Count 2.69 MC/CUMM (3.8-5.5); Red Cell Distribution Width 14.9 % (9.3-17.3); White Blood Count 16.1 T/CUMM (4-12)
[2022-04-30] MEDS: SODIUM CHLORIDE 0.9% 1,000 ML IV SCH (05:06)
[2022-04-30] MEDS: ALBUTEROL 2.5 MG/3 ML NEB RESP TX SCH ×3 (07:11→23:19)
[2022-04-30 07:28] LABS: Calcium 9.5 MG/DL (8.5-10.1); Osmolality,Calculated 304.4 MOS/KG (273-304); Potassium 4.2 MMOL/L (3.5-5.1)
[2022-04-30] MEDS: INSULIN LISPRO 100 UNIT/ML SUBCUT SCH ×4 (10:24→21:42)
[2022-04-30] MEDS: ATORVASTATIN 80 MG TABLET PO SCH (10:25)
[2022-04-30] MEDS: ASPIRIN EC 325 MG TABLET PO SCH (10:25)
[2022-04-30] MEDS: CYANOCOBALAMIN 1000 MCG/1 ML VIAL SUBCUT SCH (10:25)
[2022-04-30] MEDS: ESCITALOPRAM 10 MG TABLET PO SCH ×2 (10:25→16:05)
[2022-04-30] MEDS: CLOPIDOGREL 75 MG TABLET PO SCH (10:25)
[2022-04-30] MEDS: BUDESONIDE/FORMOTEROL 160-4.5 INHALER 6 GM INH SCH ×2 (10:25→21:00)
[2022-04-30] MEDS: POLYETHYLENE GLYCOL POWDER 17 GM PACK PO SCH (10:25)
[2022-04-30] MEDS: FERRIC GLUCONATE COMPLEX 125 MG in SODIUM CHLORIDE 0.9% 100 ML IV SCH (10:25)
[2022-04-30] MEDS: PANTOPRAZOLE 40 MG TABLET PO SCH (10:25)
[2022-04-30] MEDS: CALCIUM (CARBONATE) 500 MG TABLET PO SCH ×2 (10:25→21:52)
[2022-04-30] MEDS: carvediloL 12.5 MG TABLET PO SCH ×2 (10:25→16:05)
[2022-04-30] MEDS: allopurinoL 100 MG TABLET PO SCH (10:25)
[2022-04-30] MEDS: cefTRIAXone 1,000 MG in SODIUM CHLORIDE 0.9% 100 ML IV SCH (12:15)
[2022-04-30] MEDS: HYDROmorphone 1 MG/1 ML SYRINGE IV PRN (12:15)
[2022-05-01] MEDS: SODIUM CHLORIDE 0.9% 1,000 ML IV SCH ×2 (01:59→17:08)
[2022-05-01] MEDS: DOXYCYCLINE HYCLATE INJ 100 MG in SODIUM CHLORIDE 0.9% 100 ML IV SCH ×2 (02:29→15:47)
[2022-05-01 05:37] LABS: Basophils # 0.1 10*3/uL (0.0-0.2); Basophils % 0.4 % (0.0-0.8); Eosinophils # 0.6 10*3/uL (0.0-0.87); Eosinophils % 3.4 % (0.00-10.9); Hematocrit 22.4 VOL% (35.7-47.0); Immature Granulocytes % 6.5 %; Immature Granulocytes Absolute 1.17 #; Lymphocytes # 1.3 10*3/uL (1.4-4.0); Lymphocytes % 7.2 % (21.3-54.2); Mean Corpuscular HGB Conc 31.3 GM/DL (32-36); Mean Platelet Volume 10.1 FL (9.6-12.0); Monocytes # 1.9 10*3/uL (0.11-0.8); Monocytes % 10.5 % (1.7-12.7); NRBC # 0.04 10*3/uL; Platelet Count 280 T/CUMM (130-400); Red Blood Count 2.31 MC/CUMM (3.8-5.5); White Blood Count 17.9 T/CUMM (4-12)
[2022-05-01 05:56] LABS: Calcium 9.2 MG/DL (8.5-10.1); Osmolality,Calculated 294.5 MOS/KG (273-304); Potassium 4.1 MMOL/L (3.5-5.1)
[2022-05-01 05:59] LABS: Eosinophils 4 % (0-10); Lymphocytes 3 % (20-55); Platelet Estimate Adequate; Total Cells Counted 100
[2022-05-01] MEDS: ALBUTEROL 2.5 MG/3 ML NEB RESP TX SCH ×2 (06:50→14:00)
[2022-05-01] MEDS: FERRIC GLUCONATE COMPLEX 125 MG in SODIUM CHLORIDE 0.9% 100 ML IV SCH (09:06)
[2022-05-01] MEDS: PANTOPRAZOLE 40 MG TABLET PO SCH (09:06)
[2022-05-01] MEDS: allopurinoL 100 MG TABLET PO SCH (09:07)
[2022-05-01] MEDS: carvediloL 12.5 MG TABLET PO SCH ×2 (09:07→16:30)
[2022-05-01] MEDS: ASPIRIN EC 325 MG TABLET PO SCH (09:07)
[2022-05-01] MEDS: CLOPIDOGREL 75 MG TABLET PO SCH (09:07)
[2022-05-01] MEDS: ATORVASTATIN 80 MG TABLET PO SCH (09:07)
[2022-05-01] MEDS: CYANOCOBALAMIN 1000 MCG/1 ML VIAL SUBCUT SCH (09:07)
[2022-05-01] MEDS: ESCITALOPRAM 10 MG TABLET PO SCH ×2 (09:07→16:30)
[2022-05-01] MEDS: CALCIUM (CARBONATE) 500 MG TABLET PO SCH ×2 (09:07→21:55)
[2022-05-01] MEDS: BUDESONIDE/FORMOTEROL 160-4.5 INHALER 6 GM INH SCH ×2 (09:09→23:20)
[2022-05-01] MEDS ORDERED: SODIUM CHLORIDE 0.9% 1,000 ML IV PRN (09:27)
[2022-05-01] MEDS: INSULIN LISPRO 100 UNIT/ML SUBCUT SCH ×4 (09:36→23:19)
[2022-05-01] MEDS: POLYETHYLENE GLYCOL POWDER 17 GM PACK PO SCH (09:36)
[2022-05-01] MEDS ORDERED: FUROSEMIDE 40 MG/4 ML VIAL IV ONE (12:00)
[2022-05-01] MEDS: cefTRIAXone 1,000 MG in SODIUM CHLORIDE 0.9% 100 ML IV SCH (15:47)
[2022-05-01 19:22] LABS: Hematocrit 31.2 VOL% (35.7-47.0); Hemoglobin 10.3 GM/DL (12.0-16.0)
[2022-05-02] MEDS: ALBUTEROL 2.5 MG/3 ML NEB RESP TX SCH ×3 (00:47→13:50)
[2022-05-02] MEDS: DOXYCYCLINE HYCLATE INJ 100 MG in SODIUM CHLORIDE 0.9% 100 ML IV SCH ×2 (02:23→14:15)
[2022-05-02] MEDS: INSULIN LISPRO 100 UNIT/ML SUBCUT SCH ×4 (07:53→22:07)
[2022-05-02] MEDS: carvediloL 12.5 MG TABLET PO SCH ×2 (09:00→16:59)
[2022-05-02] MEDS: ASPIRIN EC 81 MG TABLET PO SCH (09:00)
[2022-05-02] MEDS: ERGOCALCIFEROL 50,000 UNIT CAPSULE PO SCH (09:00)
[2022-05-02] MEDS: CLOPIDOGREL 75 MG TABLET PO SCH (09:00)
[2022-05-02] MEDS: CALCIUM (CARBONATE) 500 MG TABLET PO SCH ×2 (09:00→22:06)
[2022-05-02] MEDS: PANTOPRAZOLE 40 MG TABLET PO SCH (09:00)
[2022-05-02] MEDS: ATORVASTATIN 80 MG TABLET PO SCH (09:01)
[2022-05-02] MEDS: allopurinoL 100 MG TABLET PO SCH (09:01)
[2022-05-02] MEDS: CYANOCOBALAMIN 1000 MCG/1 ML VIAL SUBCUT SCH (09:01)
[2022-05-02] MEDS: BUDESONIDE/FORMOTEROL 160-4.5 INHALER 6 GM INH SCH ×2 (09:01→22:06)
[2022-05-02] MEDS: POLYETHYLENE GLYCOL POWDER 17 GM PACK PO SCH (09:02)
[2022-05-02] MEDS: FERRIC GLUCONATE COMPLEX 125 MG in SODIUM CHLORIDE 0.9% 100 ML IV SCH (09:09)
[2022-05-02] MEDS: ESCITALOPRAM 10 MG TABLET PO SCH ×2 (10:24→16:58)
[2022-05-02 10:50] LABS: Calcium 9.6 MG/DL (8.5-10.1); Osmolality,Calculated 288.7 MOS/KG (273-304); Potassium 4.1 MMOL/L (3.5-5.1)
[2022-05-02] MEDS: cefTRIAXone 1,000 MG in SODIUM CHLORIDE 0.9% 100 ML IV SCH (12:08)
[2022-05-03] MEDS: ALBUTEROL 2.5 MG/3 ML NEB RESP TX SCH ×4 (00:04→23:45)
[2022-05-03] MEDS: DOXYCYCLINE HYCLATE INJ 100 MG in SODIUM CHLORIDE 0.9% 100 ML IV SCH ×2 (01:58→15:32)
[2022-05-03] MEDS: PANTOPRAZOLE 40 MG TABLET PO SCH (09:46)
[2022-05-03] MEDS: ATORVASTATIN 80 MG TABLET PO SCH (09:46)
[2022-05-03] MEDS: ESCITALOPRAM 10 MG TABLET PO SCH ×2 (09:46→17:53)
[2022-05-03] MEDS: carvediloL 12.5 MG TABLET PO SCH ×2 (09:46→17:53)
[2022-05-03] MEDS: FERRIC GLUCONATE COMPLEX 125 MG in SODIUM CHLORIDE 0.9% 100 ML IV SCH (09:47)
[2022-05-03] MEDS: CLOPIDOGREL 75 MG TABLET PO SCH (09:47)
[2022-05-03] MEDS: CYANOCOBALAMIN 1000 MCG/1 ML VIAL SUBCUT SCH (09:47)
[2022-05-03] MEDS: CALCIUM (CARBONATE) 500 MG TABLET PO SCH ×2 (09:47→21:19)
[2022-05-03] MEDS: allopurinoL 100 MG TABLET PO SCH (09:47)
[2022-05-03] MEDS: ASPIRIN EC 81 MG TABLET PO SCH (09:47)
[2022-05-03] MEDS: POLYETHYLENE GLYCOL POWDER 17 GM PACK PO SCH (09:48)
[2022-05-03] MEDS: BUDESONIDE/FORMOTEROL 160-4.5 INHALER 6 GM INH SCH ×2 (09:48→21:19)
[2022-05-03] MEDS: INSULIN LISPRO 100 UNIT/ML SUBCUT SCH ×4 (10:48→21:19)
[2022-05-03] MEDS: cefTRIAXone 1,000 MG in SODIUM CHLORIDE 0.9% 100 ML IV SCH (11:25)
[2022-05-03] MEDS ORDERED: POLYETHYLENE GLYCOL POWDER 17 GM PACK PO PRN (18:21)
[2022-05-04] MEDS: DOXYCYCLINE HYCLATE INJ 100 MG in SODIUM CHLORIDE 0.9% 100 ML IV SCH (02:20)
[2022-05-04] MEDS: ALBUTEROL 2.5 MG/3 ML NEB RESP TX SCH (07:15)
[2022-05-04] MEDS: CALCIUM (CARBONATE) 500 MG TABLET PO SCH (09:28)
[2022-05-04] MEDS: INSULIN LISPRO 100 UNIT/ML SUBCUT SCH ×2 (09:28→11:30)
[2022-05-04] MEDS: ASPIRIN EC 81 MG TABLET PO SCH (09:29)
[2022-05-04] MEDS: CLOPIDOGREL 75 MG TABLET PO SCH ×2 (09:29→09:34)
[2022-05-04] MEDS: PANTOPRAZOLE 40 MG TABLET PO SCH (09:29)
[2022-05-04] MEDS: carvediloL 12.5 MG TABLET PO SCH (09:29)
[2022-05-04] MEDS: ATORVASTATIN 80 MG TABLET PO SCH (09:29)
[2022-05-04] MEDS: ESCITALOPRAM 10 MG TABLET PO SCH (09:29)
[2022-05-04] MEDS: allopurinoL 100 MG TABLET PO SCH (09:29)
[2022-05-04] MEDS: FERRIC GLUCONATE COMPLEX 125 MG in SODIUM CHLORIDE 0.9% 100 ML IV SCH (09:30)
[2022-05-04] MEDS: POLYETHYLENE GLYCOL POWDER 17 GM PACK PO SCH (09:30)
[2022-05-04] MEDS: BUDESONIDE/FORMOTEROL 160-4.5 INHALER 6 GM INH SCH (09:31)
[2022-05-04] MEDS: CYANOCOBALAMIN 1000 MCG/1 ML VIAL SUBCUT SCH (09:31)
[2022-05-04 12:23] VITALS: BP 145/67
[2022-05-04] MEDS: cefTRIAXone 1,000 MG in SODIUM CHLORIDE 0.9% 100 ML IV SCH (14:36)
== END 2022-05-04 13:25 | DRG 480 ==
LOC: EDBD → EDUNIT# → N.ED 23:31 → N.EDINP 04-25 01:22 → SUATTDRO 04-25 01:22 → N.3E 04-25 02:26
PROVIDERS: ADMIT Internal Medicine; ATTEND Internal Medicine